=== PATIENT | female | born 1960 | race Caucasian/White ===

== ENCOUNTER → 2017-09-04 | Emergency (ER) | payer OTHER ==
[~2017-09-04] VITALS: Ht 160 cm; Wt 72.6 kg
[~2017-09-04] MED LIST: ATACAND16 MG; KETO10TA2 PO; NABUMETONE500 MG PO; PERCOCET 5/3251 TAB PO
== END | disposition home or self-care (01) ==
LOC: ER 14:19
DX: R41.0 Disorientation, unspecified (principal); M54.2 Cervicalgia; M47.892 Other spondylosis, cervical region

== ENCOUNTER 2017-09-24 21:01 | Emergency (ER) | payer OTHER ==
[~2017-09-24] VITALS: Ht 160 cm; Wt 76.2 kg
== END 2017-09-24 23:55 | disposition home or self-care (01) ==
LOC: ER 21:01
DX: K59.09 Other constipation (principal); R10.84 Generalized abdominal pain

== ENCOUNTER 2018-05-12 15:33 | Outpatient (CLI) | payer OTHER | END 2018-05-12 15:52 | disposition home or self-care (01) | LOC: NUCLEAR 15:33 | DX: G45.4 Transient global amnesia (principal) ==

== ENCOUNTER 2018-05-19 12:19 | Emergency (ER) | payer OTHER ==
[~2018-05-19] VITALS: Ht 160 cm; Wt 78.9 kg
[2018-05-19] MEDS ORDERED: INTESTINEX680 M1 PO (15:57)
[2018-05-19] MEDS ORDERED: PEPCID20 MG PO (15:57)
[2018-05-19] MEDS ORDERED: FLAGYL500MG PO (15:57)
== END 2018-05-19 16:07 | disposition home or self-care (01) ==
LOC: ER 12:19
DX: R10.32 Left lower quadrant pain (principal)

== ENCOUNTER 2018-08-25 14:08 | Emergency (ER) | payer OTHER ==
[~2018-08-25] VITALS: Ht 160 cm; Wt 79.8 kg
[~2018-08-25 14:08] MED LIST changes: +FLAGYL500MG PO; +INTESTINEX680 M1 PO; +PEPCID20 MG PO
[2018-08-25] MEDS ORDERED: LOSARTAN POTASS50 MG (14:30)
== END 2018-08-25 20:21 | disposition home or self-care (01) ==
LOC: ER 14:08
DX: B96.0 Mycoplasma pneumoniae [M. pneumoniae] as the cause of diseases classified elsewhere (principal)

== ENCOUNTER 2020-02-20 12:43 | Emergency (ER) | payer OTHER ==
[~2020-02-20] VITALS: Ht 157.5 cm; Wt 81.6 kg
[~2020-02-20 12:43] MED LIST changes: +LOSARTAN POTASS50 MG
[2020-02-20] MEDS ORDERED: PEPCID AC20 MG (13:06)
[2020-02-20] MEDS ORDERED: RESTORIL15 MG (13:07)
== END 2020-02-20 13:44 | disposition home or self-care (01) ==
LOC: ER 12:43
DX: S60.472A Other superficial bite of right middle finger, initial encounter (principal); W54.0XXA Bitten by dog, initial encounter; Y93.89 Activity, other specified; Y92.89 Other specified places as the place of occurrence of the external cause; Y99.8 Other external cause status

== ENCOUNTER 2020-04-30 11:14 | Emergency (ER) | payer OTHER ==
[~2020-04-30] VITALS: Ht 160 cm; Wt 81.6 kg
[~2020-04-30 11:14] MED LIST changes: +PEPCID AC20 MG; +RESTORIL15 MG
== END 2020-04-30 15:16 | disposition home or self-care (01) ==
LOC: ER 11:14
DX: R41.0 Disorientation, unspecified (principal); F41.1 Generalized anxiety disorder; F43.0 Acute stress reaction; I16.0 Hypertensive urgency; I10 Essential (primary) hypertension

== ENCOUNTER 2020-08-02 13:06 | Outpatient (CLI) | payer OTHER | END 2020-08-02 13:35 | disposition home or self-care (01) | LOC: RAD 13:06 | DX: M47.892 Other spondylosis, cervical region (principal); M48.02 Spinal stenosis, cervical region; M48.062 Spinal stenosis, lumbar region with neurogenic claudication; M54.2 Cervicalgia; M54.6 Pain in thoracic spine ==